=== PATIENT | male | born 1965 | race Caucasian/White ===

== ENCOUNTER 2017-07-07 10:48 | Emergency (ER) | payer MEDICAID ==
[2017-07-07 10:57] VITALS: TEMP 97.7
--- NOTE | 2017-07-07 11:52 | EDPHY ---
General - History Smoking Status: Heavy smoker Narrative: The patient was evaluated and managed by the physician program services assistant. I have reviewed this chart and I agree with the findings and plan of care as documented , as indicated by my signature. I am the secondary supervising physician. ( Ivonne Narayan) CHIEF COMPLAINT: Flu-like symptoms HISTORY OF PRESENT ILLNESS: Patient presents with complaints of flu-like symptoms for the past 24 hr. Abrupt onset. Constant duration. These involve cough, congestion, runny nose, sore throat, body aches, vomiting, occasional diarrhea. He has no chest pain. No abdominal pain. No urinary complaints. No neck pain or stiffness. No headache. No evaluation for this. No medications taken. No other associated complaints or modifying factors. REVIEW OF SYSTEMS: Ten systems reviewed and are negative unless otherwise noted in the HPI PCP: None SPECIALISTS: None PAST MEDICAL HISTORY: None PAST SURGICAL HISTORY: None SOCIAL HISTORY: Daily smoker. FAMILY HISTORY: Noncontributory EXAMINATION General Appearance: Alert, no distress Head: normocephalic, atraumatic Eyes: Pupils equal and round, no conjunctival pallor or injection ENT, Mouth: Mucous membranes moist. Airway patent Neck: Normal inspection, supple, non-tender. No meningeal signs Respiratory: Mild rhonchi. No wheezing. No crackles. No diminishment. Cardiovascular: Regular rate and rhythm. No murmur Gastrointestinal: Abdomen is soft and nontender Back: non-tender, no bony abnormalities Neurological: A&O, nonfocal, normal gait Skin: Warm and dry, no rash no petechiae or purpura Extremities: Nontender, no pedal edema Psychiatric: Mood and affect normal DIFFERENTIAL DIAGNOSES: Including but not limited to influenza, bronchitis, pneumonia, viral syndrome MDM: 11:30 a.m. Flu-like symptoms with normal vital signs, normal auscultation. Strep test is negative. He is in no acute distress. He is not vomiting. He is tolerating intake by mouth. I do not feel he warrants IV placement or IV fluid at this time. I will obtain a chest x-ray to rule out pneumonia given that he is a smoker. No further intervention warranted at this time. 12:10 p.m. Chest x-ray does not reveal any evidence of pneumonia appears to be consistent with viral or etiology versus bronchitis. Influenza test is pending. Given the recent onset of his symptoms I will elect to treat him symptomatically. I will provide prescription for Tamiflu and a dose of Decadron here. We will provide symptomatic medications as well. [facility] is to [facility] with [facility]. We discussed ED precautions for any chest pain, worsening or symptoms. He is comfortable this plan and discharged home stable condition. SUPERVISION: This patient was independently evaluated without direct involvement of or examination by the attending physician. (Williams Person) - Objective Vital Signs: Initial Vital Signs Temperature (C) 97.7 F 07/07/17 10:54 Heart Rate 86 07/07/17 10:54 Respiratory Rate 16 07/07/17 10:54 Blood Pressure 119/71 07/07/17 10:54 O2 Sat (%) 94 07/07/17 10:54 O2 Delivery Mode Room Air Allergies/Adverse Reactions: No Known Allergies Allergy (Unverified 07/07/17 10:54) Home Medications: Medication Instructions Recorded Acetaminophen/Codeine 300/30Mg 1 each PO Q6 PRN #7 tab 07/07/17 [Tylenol #3 (*)] Albuterol [Proventil Inhaler HFA 1 - 2 puffs IH Q4H PRN #1 mdi 07/07/17 (*)] Ondansetron Odt [Zofran Odt 4 mg 4 mg PO Q6 PRN #12 tab 07/07/17 (*)] Oseltamivir Phosphate [Tamiflu 75 75 mg PO BID #10 cap 07/07/17 mg (*)] Medications Given: Discontinued Medications Dexamethasone (Decadron) 8 mg PO EDNOW ONE Stop: 07/07/17 12:14 Last Admin: 07/07/17 12:19 Dose: 8 mg Oseltamivir Phosphate (Tamiflu) 75 mg PO EDNOW ONE Stop: 07/07/17 12:14 Last Admin: 07/07/17 12:19 Dose: 75 mg Departure - Departure Disposition: Home, Routine, Self-Care Clinical Impression: Flu-like symptoms, Bronchitis Condition: Good Instructions: Albuterol (By breathing), Ondansetron (By mouth), Oseltamivir ( By mouth), Narcotic-Analgesic/Acetaminophen (By mouth), How to Stop Smoking (ED) , Influenza (ED), Acute Bronchitis (ED) Additional Instructions: 1. Medications as prescribed to completion 2. ED precautions for worsening symptoms or any chest pain of any kind 3. Smoking cessation 4. Contact [facility] for outpatient care Referrals: [facility],. [Clinic] - As per Instructions Prescriptions: Acetaminophen/Codeine 300/30Mg [Tylenol #3 (*)] 1 each PO Q6 PRN #7 tab PRN Reason: Pain, Mild Albuterol [Proventil Inhaler HFA (*)] 1 - 2 puffs IH Q4H PRN #1 mdi PRN Reason: Short Of Breath/Dyspnea Ondansetron Odt [Zofran Odt 4 mg (*)] 4 mg PO Q6 PRN #12 tab PRN Reason: Nausea/Vomiting, Use 1st Oseltamivir Phosphate [Tamiflu 75 mg (*)] 75 mg PO BID #10 cap
[2017-07-07] MEDS ORDERED: OSELTAMIVIR PHOSPHATE 75 MG CAP PO ONE (12:13)
[2017-07-07] MEDS ORDERED: DEXAMETHASONE 4 MG TAB PO ONE (12:13)
[2017-07-07 12:24] VITALS: BP 114/75; PULSE 83; RESP 18; O2SAT 96
== END 2017-07-07 12:24 | disposition home or self-care (01) ==
DX: J40 Bronchitis, not specified as acute or chronic (principal); F17.200 Nicotine dependence, unspecified, uncomplicated